=== PATIENT | female | born 1995 | race Caucasian/White ===

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

== ENCOUNTER → 2017-04-22 | Outpatient (CLI) | payer OTHER ==
[~2017-04-22] MED LIST changes: +ESCI10TA17 PO; -SERT-234 PO; -[UNRECOGNIZED DRUG - OTHER] PO
[2017-04-22 14:41] LABS: BASO % 0.3 %; BASO ABS # 0.03 K/uL (0-0.2); EOS % 0.9 %; EOS ABS # 0.09 K/uL (0-0.5); HEMOGLOBIN 14.9 g/dL (12.0-16.0); IG# 0.02 K/uL (0.00-0.02); LYMPH % 26.7 %; LYMPH ABS # 2.59 K/uL (1.2-3.4); MEAN CELL VOLUME 87.8 fL (80-100); MEAN CORPUSCULAR HEMOGLOBIN 30.4 pg (25-34); MEAN CORPUSCULAR HGB CONC 34.7 g/dl (32-36); MONO ABS # 0.58 K/uL (0.11-0.59); NEUT % 65.9 %; PLATELET COUNT 318 K/uL (130-400); RED CELL DISTRIBUTION WIDTH CV 12.9 % (11.5-14.5); RED CELL DISTRIBUTION WIDTH SD 41.2 fL (36.4-46.3); WHITE BLOOD COUNT 9.71 K/uL (4.8-10.8)
[2017-04-22 15:19] LABS: THYROXINE (T4) 8.8 mcg/dl (4.5-10.9)
== END | disposition home or self-care (01) ==
LOC: C.LAB 13:40
PROVIDERS: ATTEND Specialist
DX: L50.3 Dermatographic urticaria (principal)